=== PATIENT | male | born 1985 | race Caucasian/White ===

== ENCOUNTER 2017-08-23 18:59 | Emergency (ER) | payer OTHER ==
[2017-08-23] MEDS ORDERED: Ketorolac 60 MG/2 ML SDV IM ONE (19:20)
[2017-08-23] MEDS ORDERED: predniSONE 20 MG Tab PO ONE (19:20)
--- NOTE | 2017-08-23 19:26 | EDM.PDOC ---
ED HPI GENERAL MEDICAL PROBLEM - General Chief Complaint: Upper Extremity Injury/Pain Stated Complaint: GOUT/PAIN RT LEG Time Seen by Provider: 08/23/17 19:09 - History of Present Illness INITIAL COMMENTS - FREE TEXT/NARRATIVE: HISTORY AND PHYSICAL: History of present illness: The patient is a 31-year-old male with no stated medical problems who had a gout flareup in his knee approximate 6 months ago and presents with pain in the base of his right foot that started 2 days ago. The patient denies any trauma to the area such as direct blows twisting or miss stepping and has no proximal ankle calf knee or hip pain. He has no fevers or chills. The patient says that he has an appointment set up to see a receiving teller back home in [place] and he also has medicines for gout but he did not bring them to work with him when he traveled here recently. He says he had been on steroids 6 months ago as well as indomethacin tramadol and [place]. He says the doctor at the times that they could be some arthritis as well in his knee. He has no other joint pain Review of systems: As per history of present illness and below otherwise all systems reviewed and negative. Past medical history: As per history of present illness and as reviewed below otherwise noncontributory. Surgical history: As per history of present illness and as reviewed below otherwise noncontributory. Social history: No reported history of drug or alcohol abuse. Family history: As per history of present illness and as reviewed below otherwise noncontributory. Physical exam: Gen.: Well-developed well-nourished man was difficulty ambulating and weightbearing on the right foot secondary to pain. Vital signs are reviewed by me HEENT: Atraumatic, normocephalic, negative for conjunctival pallor or scleral icterus, mucous membranes moist, throat clear, neck supple, nontender, trachea midline. Lungs: Clear to auscultation, breath sounds equal bilaterally, chest nontender. Heart: S1S2, regular rate and rhythm no overt murmurs Abdomen: Soft, nondistended, nontender. NABS. Pelvis: Stable nontender. No lateral hip tenderness on the right Genitourinary: Deferred. Rectal: Deferred. Extremities: Atraumatic appearing throughout but there is discrete tenderness at the MTPs mostly first and second without warmth or erythema or ecchymosis. There are no palpable bony deformities throughout the foot there is no proximal ankle calf tib-fib knee or hip pain on the right side. Neurovascular is intact. , negative for cords or calf pain. Neurovascular unremarkable. Neuro: Awake, alert, oriented. Cranial nerves II through XII unremarkable. Cerebellum unremarkable. Motor and sensory unremarkable throughout. Exam nonfocal. Diagnostics: [] Therapeutics: Toradol prednisone postop shoe I offered the patient an x-ray but he says he has not had any trauma to the foot and we discussed that labs would probably not change the care plan. He has rheumatology follow-up scheduled and I encouraged him to continue that. Impression: Acute right foot pain likely secondary to gout with history of same Definitive disposition and diagnosis as appropriate pending reevaluation and review of above. right foot Pain Score (Numeric/FACES): 9 - Related Data Allergies Allergy/AdvReac Type Severity Reaction Status Date / Time No Known Allergies Allergy Verified 08/23/17 19:08 Home Meds: Home Meds Indomethacin 50 mg PO TID 08/23/17 [History] Past Medical History HEENT History: Reports: None Cardiovascular History: Reports: None Respiratory History: Reports: None Gastrointestinal History: Reports: None Genitourinary History: Reports: None Musculoskeletal History: Reports: Gout Neurological History: Reports: None Psychiatric History: Reports: None Endocrine/Metabolic History: Reports: None Hematologic History: Reports: None Immunologic History: Reports: None Oncologic (Cancer) History: Reports: None Dermatologic History: Reports: None - Infectious Disease History Infectious Disease History: Reports: None - Past Surgical History Head Surgeries/Procedures: Reports: None Social & Family History - Family History Family Medical History: Noncontributory - Tobacco Use Smoking Status *Q: Never Smoker - Caffeine Use Caffeine Use: Reports: Tea - Recreational Drug Use Recreational Drug Use: No Review of Systems - Review of Systems Review Of Systems: ROS reveals no pertinent complaints other than HPI. ED EXAM, GENERAL - Physical Exam Exam: See Below (See dictation) Course - Vital Signs Last Recorded V/S: Last Vital Signs Temp 36.4 C 08/23/17 19:09 Pulse 78 08/23/17 19:09 Resp 18 08/23/17 19:09 BP 115/83 08/23/17 19:09 Pulse Ox 98 08/23/17 19:09 - Orders/Labs/Meds Orders: Active Orders 24 hr Category Date Time Status Ketorolac [Toradol] Med 08/23/17 19:20 Once 60 mg IM ONETIME ONE predniSONE Med 08/23/17 19:20 Once 20 mg PO ONETIME ONE Departure - Departure Time of Disposition: 19:25 Disposition: Home, Self-Care 01 Condition: Good Clinical Impression: Acute pain of right foot Gout Qualifiers: Gout site: foot Gout etiology: unspecified cause Chronicity: acute Laterality: right Qualified Code(s): M10.9 - Gout, unspecified - Discharge Information Referrals: PCP,None [Primary Care Provider] - Additional Instructions: The following information is given to patients seen in the emergency department who are being discharged to home. This information is to outline your options for follow-up care. We provide all patients seen in our emergency department with a follow-up referral. The need for follow-up, as well as the timing and circumstances, are variable depending upon the specifics of your emergency department visit. If you don't have a primary care physician on staff, we will provide you with a referral. We always advise you to contact your personal physician following an emergency department visit to inform them of the circumstance of the visit and for follow-up with them and/or the need for any referrals to a consulting specialist. The emergency department will also refer you to a specialist when appropriate. This referral assures that you have the opportunity for followup care with a specialist. All of these measure are taken in an effort to provide you with optimal care, which includes your followup. Under all circumstances we always encourage you to contact your private physician who remains a resource for coordinating your care. When calling for followup care, please make the office aware that this follow-up is from your recent emergency room visit. If for any reason you are refused follow-up, please contact the [facility] emergency department at and ask to speak to the emergency department charge nurse. [facility] Primary care- Internal Medicine and Family [address] [id number] Please take all medications as prescribed and wear postop shoe as needed. Ice and elevate the area as much as possible. Please keep your follow-up with rheumatology that you have scheduled and also follow-up with one of our clinic physicians the next few days as needed for reevaluation further care. Return to ER as needed as discussed - My Orders Last 24 Hours: My Active Orders 08/23/17 19:20 Ketorolac [Toradol] 60 mg IM ONETIME ONE predniSONE 20 mg PO ONETIME ONE - Assessment/Plan Last 24 Hours: My Active Orders 08/23/17 19:20 Ketorolac [Toradol] 60 mg IM ONETIME ONE predniSONE 20 mg PO ONETIME ONE
== END 2017-08-23 19:53 | disposition home or self-care (01) ==
LOC: MW.ED 18:59
DX: M10.9 Gout, unspecified (principal); Z79.899 Other long term (current) drug therapy
CPT/HCPCS: 96372; 99283; A9270; J1885

== ENCOUNTER 2017-09-29 16:39 | Emergency (ER) | payer SELFPAY ==
--- NOTE | 2017-09-29 17:02 | EDM.PDOC ---
ED HPI GENERAL MEDICAL PROBLEM - General Chief Complaint: Lower Extremity Injury/Pain Stated Complaint: PAIN RT FOOT Time Seen by Provider: 09/29/17 16:48 Source of Information: Reports: Patient History Limitations: Reports: No Limitations - History of Present Illness INITIAL COMMENTS - FREE TEXT/NARRATIVE: HISTORY AND PHYSICAL: History of present illness: Patient is a 31-year-old male who presents to the emergency room with complaints of right foot pain at the base of the first through fifth toe, solar surface. He reports that he has a long-standing history of gout and has been dealing with a primary care provider and a activity manager for this chronic right foot pain. Today the pain started and he says it feels "a little different unusual" and wanted to be evaluated. He took an indomethacin this morning without much relief. Date see has some left over allopurinol, but was unsure if he should've taken that. Reports that it feels better with compression and increased pain with weightbearing and when it is out of issue. Review of systems: As per history of present illness and below otherwise all systems reviewed and negative. Past medical history: As per history of present illness and as reviewed below otherwise noncontributory. Surgical history: As per history of present illness and as reviewed below otherwise noncontributory. Social history: No reported history of drug or alcohol abuse. Family history: As per history of present illness and as reviewed below otherwise noncontributory. Physical exam: General: Developed and well-nourished 31-year-old male. Alert and oriented. Nontoxic appearing and in no acute distress. HEENT: Atraumatic, normocephalic, pupils equal and reactive bilaterally, negative for conjunctival pallor or scleral icterus, mucous membranes moist, throat clear, neck supple, nontender, trachea midline. No drooling or trismus noted. No meningeal signs Lungs: Clear to auscultation, breath sounds equal bilaterally, chest nontender. Heart: S1S2, regular rate and rhythm without overt murmur Abdomen: Soft, nondistended, nontender. Negative for masses or hepatosplenomegaly. Negative for costovertebral tenderness. Pelvis: Stable nontender. Genitourinary: Deferred. Rectal: Deferred. Skin: Mild erythema noted to the base of the toes on the right foot. Otherwise intact, warm, dry. No lesions or rashes noted. Extremities: Atraumatic, mild tenderness to the pad of the foot below the first through fifth digit, right. Strong pedal pulse. Capillary refill less than 3 seconds. negative for cords or calf pain. Neurovascular unremarkable. Neuro: Awake, alert, oriented. Cranial nerves II through XII unremarkable. Cerebellum unremarkable. Motor and sensory unremarkable throughout. Exam nonfocal. Notes: Patient reports he did have an MRI couple weeks ago due to this chronic pain and was told he had a bifurcated bone which to his understanding, could easily break. Since this pain does feel somewhat different, I will do an x-ray at this time. Patient has an appointment with his activity manager in [facility] September. Helen to keep this appointment. X-ray is normal. We'll give him indomethacin, culture seen and prednisone. Upon discharge she does ask for something for pain. I did inform him of the medications that are prescribed and he is requesting "something stronger". I will give him 12 tablets of Saline. Strong education was done on the importance of taking the initially prescribed medications and using the Saline for moderate to severe pain. He voices understanding and is agreeable to plan of care. He denies any further questions at this time. Diagnostics: Foot x-ray Therapeutics: [] Impression: Gout Plan: 1. Please take the medications as prescribed. Do not take any additional NSAID such as ibuprofen or Aleve all taking these medications. 2. Do not take your home allopurinol while you have an acute gout flare. This should be started 2 weeks after your flare has resolved, these talk to your primary care provider about this. 3. Keep your rheumatology appointment in [facility] for October 01, 2017. 4. Follow-up with the primary caregiver. The phone numbers have been provided for you. Return to the ED as needed and as discussed. Definitive disposition and diagnosis as appropriate pending reevaluation and review of above. right bottom foot Pain Score (Numeric/FACES): 8 - Related Data Allergies Allergy/AdvReac Type Severity Reaction Status Date / Time No Known Allergies Allergy Verified 09/29/17 16:43 Home Meds: Home Meds Indomethacin 50 mg PO TID 08/23/17 [History] Past Medical History HEENT History: Reports: None Cardiovascular History: Reports: None Respiratory History: Reports: None Gastrointestinal History: Reports: None Genitourinary History: Reports: None Musculoskeletal History: Reports: Gout Neurological History: Reports: None Psychiatric History: Reports: None Endocrine/Metabolic History: Reports: None Hematologic History: Reports: None Immunologic History: Reports: None Oncologic (Cancer) History: Reports: None Dermatologic History: Reports: None - Infectious Disease History Infectious Disease History: Reports: None - Past Surgical History Head Surgeries/Procedures: Reports: None HEENT Surgical History: Reports: None Cardiovascular Surgical History: Reports: None Respiratory Surgical History: Reports: None GI Surgical History: Reports: None Male Surgical History: Reports: None Endocrine Surgical History: Reports: None Neurological Surgical History: Reports: None Musculoskeletal Surgical History: Reports: None Dermatological Surgical History: Reports: None Social & Family History - Family History Family Medical History: Noncontributory - Tobacco Use Smoking Status *Q: Never Smoker Second Hand Smoke Exposure: No - Caffeine Use Caffeine Use: Reports: Coffee - Recreational Drug Use Recreational Drug Use: No Review of Systems - Review of Systems Review Of Systems: ROS reveals no pertinent complaints other than HPI. ED EXAM, GENERAL - Physical Exam Exam: See Below (See dictation) Course - Vital Signs Last Recorded V/S: Last Vital Signs Temp 96.2 F 09/29/17 16:44 Pulse 71 09/29/17 16:44 Resp 20 09/29/17 16:44 BP 145/85 H 09/29/17 16:44 Pulse Ox 65 L 09/29/17 16:44 - Orders/Labs/Meds Orders: Active Orders 24 hr Category Date Time Status Foot 2V Rt [CR] Stat Exams 09/29/17 16:52 Taken Departure - Departure Time of Disposition: 17:16 Disposition: Home, Self-Care 01 Clinical Impression: Gout Qualifiers: Gout site: foot Gout etiology: unspecified cause Chronicity: acute Laterality: right Qualified Code(s): M10.9 - Gout, unspecified - Discharge Information Instructions: Gout, [id number] Referrals: PCP,None [Primary Care Provider] - Forms: ED Department Discharge Additional Instructions: The following information is given to patients seen in the emergency department who are being discharged to home. This information is to outline your options for follow-up care. We provide all patients seen in our emergency department with a follow-up referral. The need for follow-up, as well as the timing and circumstances, are variable depending upon the specifics of your emergency department visit. If you don't have a primary care physician on staff, we will provide you with a referral. We always advise you to contact your personal physician following an emergency department visit to inform them of the circumstance of the visit and for follow-up with them and/or the need for any referrals to a consulting specialist. The emergency department will also refer you to a specialist when appropriate. This referral assures that you have the opportunity for follow-up care with a specialist. All of these measure are taken in an effort to provide you with optimal care, which includes your follow-up. Under all circumstances we always encourage you to contact your private physician who remains a resource for coordinating your care. When calling for follow-up care, please make the office aware that this follow-up is from your recent emergency room visit. If for any reason you are refused follow-up, please contact the [facility] Emergency Department at and asked to speak to the emergency department charge nurse. [facility] [address] [place] [id number] [address] 1. Please take the medications as prescribed. Do not take any additional NSAID such as ibuprofen or Aleve all taking these medications. 2. Do not take your home allopurinol while you have an acute gout flare. This should be started 2 weeks after your flare has resolved, these talk to your primary care provider about this. 3. Keep your rheumatology appointment in [facility] for October 01, 2017. You may also want to consider following up with Podiatry. 4. Follow-up with the primary caregiver. The phone numbers have been provided for you. Return to the ED as needed and as discussed. - My Orders Last 24 Hours: My Active Orders 09/29/17 16:52 Foot 2V Rt [CR] Stat - Assessment/Plan Last 24 Hours: My Active Orders 09/29/17 16:52 Foot 2V Rt [CR] Stat
--- NOTE | 2017-10-02 09:22 | CR ---
EXAM DATE: 09/29/17 PATIENT'S AGE: 31 Patient: LADI MINER Facility: [place], [place] Site . Site : 1985 Study: XRay Extremity Right FOOT [id number]/13/2018 5:06:12 PM Ordering Physician: Doctor Price Final Report: HISTORY: Pain at bottom of foot. No known injury. FINDINGS: Two views of the right foot demonstrates a mild hallux valgus deformity. Joint spaces are maintained within the foot. No fracture or dislocation is seen. No radiopaque foreign body. No traction spur is seen off the calcaneus. IMPRESSION: 1. Mild hallux valgus deformity. 2. No acute bony abnormality or radiopaque foreign body. Dictated by Jhoana Quan MD @ 09/29/2017 5:31:46 PM Dictated by: Jhoana Quan MD @ 09/29/2017 17:31:52 (Electronic Signature) Report Signed by Proxy. MACO
== END 2017-09-29 17:32 | disposition home or self-care (01) ==
LOC: MW.ED 16:39
DX: M10.9 Gout, unspecified (principal); Z79.899 Other long term (current) drug therapy
CPT/HCPCS: 73620-26-RT; 73620-RT; 99283

== ENCOUNTER 2017-10-04 17:55 | Emergency (ER) | payer SELFPAY ==
--- NOTE | 2017-10-04 18:06 | EDM.PDOC ---
ED HPI GENERAL MEDICAL PROBLEM - General Chief Complaint: Back Pain or Injury Stated Complaint: BACK PAIN Time Seen by Provider: 10/04/17 18:02 - History of Present Illness INITIAL COMMENTS - FREE TEXT/NARRATIVE: HISTORY AND PHYSICAL: History of present illness: Patient 31-year-old male presents with a concern of medication request patient states he was recently seen for back injury put on Flexeril and hydrocodone he states due to his employment issues as well as intolerance of the medication he was hoping to get something in a nonnarcotic noncontrolled substance category. He denies numbness weakness incontinence or tench bowel or bladder or any other concern. Review of systems: As per history of present illness and below otherwise all systems reviewed and negative. Past medical history: As per history of present illness and as reviewed below otherwise noncontributory. Surgical history: As per history of present illness and as reviewed below otherwise noncontributory. Social history: No reported history of drug or alcohol abuse. Family history: As per history of present illness and as reviewed below otherwise noncontributory. Physical exam: HEENT: Atraumatic, normocephalic, pupils reactive, negative for conjunctival pallor or scleral icterus, mucous membranes moist, throat clear, neck supple, nontender, trachea midline. Lungs: Clear to auscultation, breath sounds equal bilaterally, chest nontender. Heart: S1S2, regular, negative for clicks, rubs, or JVD. Abdomen: Soft, nondistended, nontender. Negative for masses or hepatosplenomegaly. Negative for costovertebral tenderness. Pelvis: Stable nontender. Genitourinary: Deferred. Rectal: Deferred. Extremities: Atraumatic, negative for cords or calf pain. Neurovascular unremarkable. Neuro: Awake, alert, oriented. Cranial nerves II through XII unremarkable. Cerebellum unremarkable. Motor and sensory unremarkable throughout. Exam nonfocal. Back: Patient is some paravertebral tenderness at the level of lumbar spine no vertebral body or point tenderness she is able stand on his toes back on his heels deep tendon reflexes sounds are normal Diagnostics: None Therapeutics: None Impression: #1 lumbosacral strain/contusion Definitive disposition and diagnosis as appropriate pending reevaluation and review of above. - Related Data Allergies Allergy/AdvReac Type Severity Reaction Status Date / Time No Known Allergies Allergy Verified 10/04/17 18:01 Home Meds: Home Meds Indomethacin 50 mg PO TID 08/23/17 [History] Past Medical History HEENT History: Reports: None Cardiovascular History: Reports: None Respiratory History: Reports: None Gastrointestinal History: Reports: None Genitourinary History: Reports: None Musculoskeletal History: Reports: Gout Neurological History: Reports: None Psychiatric History: Reports: None Endocrine/Metabolic History: Reports: None Hematologic History: Reports: None Immunologic History: Reports: None Oncologic (Cancer) History: Reports: None Dermatologic History: Reports: None - Infectious Disease History Infectious Disease History: Reports: None - Past Surgical History Head Surgeries/Procedures: Reports: None HEENT Surgical History: Reports: None Cardiovascular Surgical History: Reports: None Respiratory Surgical History: Reports: None GI Surgical History: Reports: None Male Surgical History: Reports: None Endocrine Surgical History: Reports: None Neurological Surgical History: Reports: None Musculoskeletal Surgical History: Reports: None Dermatological Surgical History: Reports: None Social & Family History - Family History Family Medical History: Noncontributory - Tobacco Use Smoking Status *Q: Never Smoker Second Hand Smoke Exposure: No - Caffeine Use Caffeine Use: Reports: Coffee - Recreational Drug Use Recreational Drug Use: No ED ROS GENERAL - Review of Systems Review Of Systems: ROS reveals no pertinent complaints other than HPI. ED EXAM, GENERAL - Physical Exam Exam: See Below (See dictation) Departure - Departure Time of Disposition: 18:06 Disposition: Home, Self-Care 01 Condition: Good Clinical Impression: Back pain - Discharge Information Referrals: PCP,None [Primary Care Provider] - Additional Instructions: The following information is given to patients seen in the emergency department who are being discharged to home. This information is to outline your options for follow-up care. We provide all patients seen in our emergency department with a follow-up referral. The need for follow-up, as well as the timing and circumstances, are variable depending upon the specifics of your emergency department visit. If you don't have a primary care physician on staff, we will provide you with a referral. We always advise you to contact your personal physician following an emergency department visit to inform them of the circumstance of the visit and for follow-up with them and/or the need for any referrals to a consulting specialist. The emergency department will also refer you to a specialist when appropriate. This referral assures that you have the opportunity for followup care with a specialist. All of these measure are taken in an effort to provide you with optimal care, which includes your followup. Under all circumstances we always encourage you to contact your private physician who remains a resource for coordinating your care. When calling for followup care, please make the office aware that this follow-up is from your recent emergency room visit. If for any reason you are refused follow-up, please contact the [facility] emergency department at and asked to speak to the emergency department charge nurse. Yvonne as directed follow-up primary medical doctor and her occupational medicine as needed as discussed and return as needed as discussed
== END 2017-10-04 18:43 | disposition home or self-care (01) ==
LOC: MW.ED 17:55
DX: S39.012A Strain of muscle, fascia and tendon of lower back, initial encounter (principal); X58.XXXA Exposure to other specified factors, initial encounter
CPT/HCPCS: 99282; 99283

== ENCOUNTER 2018-11-10 14:07 | Emergency (ER) | payer SELFPAY ==
--- NOTE | 2018-11-10 14:17 | EDM.PDOC ---
ED HPI GENERAL MEDICAL PROBLEM - General Chief Complaint: Lower Extremity Injury/Pain Stated Complaint: SWOLLEN KNEE--GOUT Time Seen by Provider: 11/10/18 14:17 Source of Information: Reports: Patient History Limitations: Reports: No Limitations - History of Present Illness INITIAL COMMENTS - FREE TEXT/NARRATIVE: HISTORY AND PHYSICAL: History of present illness: Patient is a 32-year-old male who presents to the emergency room with complaints of left knee pain. He does have a history of gout and has taken medications for this in the past. He states that this is usually triggered by certain foods. Yesterday he had ate a high fatty meal and "knew it was going to flare it up". Immediately after started to have some pain in the left knee. Denies any injury, trauma or falls. Denies any numbness or tingling to the distal extremity. He is ambulatory without any difficulty or deficits. Patient denies any fever, chills, headache, change in vision, syncope or near syncope. Denies any chest pain, back pain, shortness of breath or cough. Denies any abdominal pain, nausea, vomiting, diarrhea, constipation or dysuria. Has not noted any blood in urine or stool. Patient has been eating and drinking appropriately. Review of systems: As per history of present illness and below otherwise all systems reviewed and negative. Past medical history: As per history of present illness and as reviewed below otherwise noncontributory. Surgical history: As per history of present illness and as reviewed below otherwise noncontributory. Social history: See social history for further information Family history: As per history of present illness and as reviewed below otherwise noncontributory. Physical exam: General: HEENT: Atraumatic, normocephalic, pupils equal and reactive bilaterally, negative for conjunctival pallor or scleral icterus, mucous membranes moist, trachea midline. No drooling or trismus noted. No meningeal signs. No hot potato voice noted. Lungs: Clear to auscultation, breath sounds equal bilaterally, chest nontender. Heart: S1S2, regular rate and rhythm without overt murmur Abdomen: Soft, nondistended, nontender. Skin: Intact, warm, dry. No lesions or rashes noted. Extremities: Atraumatic, moves all extremities per self without difficulty or deficits, negative for cords or calf pain. Mild tenderness to the patella. No erythema, soft tissue swelling or pinpoint tenderness with palpation. Strong pedal pulse. Neurovascular unremarkable. Neuro: Awake, alert, oriented. Cranial nerves II through XII unremarkable. Cerebellum unremarkable. Motor and sensory unremarkable throughout. Exam nonfocal. Notes: I did offer to do lab work along with an x-ray of the extremity. He declines and is requesting to be treated with the gout medications. He is aware of the risks versus benefits. He is requesting Toradol for daytime use and tramadol for her evening use. Medication education was reviewed and discussed. Supportive care measures were reviewed and discussed. Voices understanding and is agreeable to plan of care. Denies any further questions or concerns at this time. Diagnostics: Declines Therapeutics: Declines Prescription: Colchicine Prednisone 30mg x 5 days Tramadol PRN (#15) Toradol PRN (#20) Impression: Gout Plan: 1. Take the medication as prescribed. 2. Follow-up with your primary caregiver as we discussed. 3. Return to the ED as needed and as discussed. Definitive disposition and diagnosis as appropriate pending reevaluation and review of above. left knee Pain Score (Numeric/FACES): 7 - Related Data Allergies Allergy/AdvReac Type Severity Reaction Status Date / Time No Known Allergies Allergy Verified 10/04/17 18:01 Home Meds: Home Meds Colchicine 1 dose PO ASDIRECTED #3 capsule 11/10/18 [Rx] Ketorolac [Toradol] 10 mg PO TID PRN #20 tab 11/10/18 [Rx] predniSONE [Prednisone] 30 mg PO DAILY 5 Days tablet 11/10/18 [Rx] traMADol [Ultram] 50 mg PO Q4H PRN #15 tab 11/10/18 [Rx] Past Medical History HEENT History: Reports: None Cardiovascular History: Reports: None Respiratory History: Reports: None Gastrointestinal History: Reports: None Genitourinary History: Reports: None Musculoskeletal History: Reports: Gout Neurological History: Reports: None Psychiatric History: Reports: None Endocrine/Metabolic History: Reports: None Hematologic History: Reports: None Immunologic History: Reports: None Oncologic (Cancer) History: Reports: None Dermatologic History: Reports: None - Infectious Disease History Infectious Disease History: Reports: None - Past Surgical History Head Surgeries/Procedures: Reports: None HEENT Surgical History: Reports: None Cardiovascular Surgical History: Reports: None Respiratory Surgical History: Reports: None GI Surgical History: Reports: None Male Surgical History: Reports: None Endocrine Surgical History: Reports: None Neurological Surgical History: Reports: None Musculoskeletal Surgical History: Reports: None Dermatological Surgical History: Reports: None Social & Family History - Family History Family Medical History: Noncontributory - Caffeine Use Caffeine Use: Reports: Coffee Review of Systems - Review of Systems Review Of Systems: ROS reveals no pertinent complaints other than HPI. ED EXAM, GENERAL - Physical Exam Exam: See Below (See dictation) Course - Vital Signs Last Recorded V/S: Last Vital Signs Temp 97.8 F 11/10/18 14:18 Pulse 80 11/10/18 14:18 Resp 18 11/10/18 14:18 BP 146/64 H 11/10/18 14:18 Pulse Ox 98 11/10/18 14:18 Departure - Departure Time of Disposition: 14:28 Disposition: Home, Self-Care 01 Clinical Impression: Gout Qualifiers: Gout site: foot Gout etiology: unspecified cause Chronicity: acute Laterality: right Qualified Code(s): M10.9 - Gout, unspecified - Discharge Information Prescriptions: Colchicine 1 dose PO ASDIRECTED #3 capsule Ketorolac [Toradol] 10 mg PO TID PRN #20 tab PRN Reason: Pain predniSONE [Prednisone] 30 mg PO DAILY 5 Days tablet traMADol [Ultram] 50 mg PO Q4H PRN #15 tab PRN Reason: Pain (Moderate 4-6) Instructions: Gout, [id number] Referrals: PCP,Unknown [Primary Care Provider] - Forms: ED Department Discharge Additional Instructions: The following information is given to patients seen in the emergency department who are being discharged to home. This information is to outline your options for follow-up care. We provide all patients seen in our emergency department with a follow-up referral. The need for follow-up, as well as the timing and circumstances, are variable depending upon the specifics of your emergency department visit. If you don't have a primary care physician on staff, we will provide you with a referral. We always advise you to contact your personal physician following an emergency department visit to inform them of the circumstance of the visit and for follow-up with them and/or the need for any referrals to a consulting specialist. The emergency department will also refer you to a specialist when appropriate. This referral assures that you have the opportunity for follow-up care with a specialist. All of these measure are taken in an effort to provide you with optimal care, which includes your follow-up. Under all circumstances we always encourage you to contact your private physician who remains a resource for coordinating your care. When calling for follow-up care, please make the office aware that this follow-up is from your recent emergency room visit. If for any reason you are refused follow-up, please contact the [facility] at and asked to speak to the emergency department charge nurse. [facility] [address] [place] [id number] [id number] 1. Take the medication as prescribed. 2. Follow-up with your primary caregiver as we discussed. 3. Return to the ED as needed and as discussed.
== END 2018-11-10 14:42 | disposition home or self-care (01) ==
LOC: MW.ED 14:07
DX: M10.9 Gout, unspecified (principal)
CPT/HCPCS: 99283